=== PATIENT | female | born 1940 | race Caucasian/White ===

== ENCOUNTER 2022-02-03 15:24 | Outpatient (REF) | payer BC, OTHER, SELFPAY ==
[2022-02-03 17:34] LABS: Appearance Urine Turbid (Clear); Bilirubin Urine Negative (Negative); Blood Urine 3+ (Negative); Color Urine Red (Yellow); Glucose Urine Negative (Negative); Ketones Urine Negative (Negative); Leukocyte Esterase Urine 3+ (Negative); Nitrite Urine Positive (Negative); Protein Urine 2+ (Negative); Urobilinogen Urine 0.2 (0.2-1.0); pH Urine 7.5 (5.0-8.5)
[2022-02-03 18:01] LABS: RBC Urine 50-100 (0-2); Squamous Epithelial Cell Urine Few (None-Few); WBC Urine 25-50 (0-5)
[2022-02-03 18:02] LABS: Bacteria Urine Moderate
== END 2022-02-03 15:25 | disposition home or self-care (01) ==
LOC: NPINS 15:24
PROVIDERS: PCP Family Medicine; Visit Provider Family Medicine
DX: N31.9 Neuromuscular dysfunction of bladder, unspecified (principal); N21.0 Calculus in bladder; N30.90 Cystitis, unspecified without hematuria; Z93.6 Other artificial openings of urinary tract status
CPT/HCPCS: 81003; 81015; 87086; 87186

== ENCOUNTER 2022-03-31 09:46 | Outpatient (REF) | payer BC, OTHER, SELFPAY ==
[2022-03-31 10:19] LABS: Appearance Urine Cloudy (Clear); Bilirubin Urine Negative (Negative); Blood Urine 3+ (Negative); Color Urine Amber (Yellow); Glucose Urine Negative (Negative); Ketones Urine Negative (Negative); Leukocyte Esterase Urine 2+ (Negative); Nitrite Urine Positive (Negative); Protein Urine 2+ (Negative); Urobilinogen Urine 0.2 (0.2-1.0); pH Urine 7.5 (5.0-8.5)
[2022-03-31 10:43] LABS: Amorphous Sediment Urine Many; Bacteria Urine Many; RBC Urine >100 (0-2); Squamous Epithelial Cell Urine Moderate (None-Few); WBC Urine 25-50 (0-5)
== END 2022-03-31 09:47 | disposition home or self-care (01) ==
LOC: NPINS 09:46
PROVIDERS: PCP Family Medicine; Visit Provider Nurse Practitioner Gerontology
DX: N31.9 Neuromuscular dysfunction of bladder, unspecified (principal)
CPT/HCPCS: 81003; 81015; 87086; 87186

== ENCOUNTER 2022-04-22 12:08 | Outpatient (REF) | payer BC, OTHER, SELFPAY ==
[2022-04-22 13:02] LABS: Creatinine* 0.3 mg/dL (0.5-1.5); Estimated Glomerular Filt Rate 106 ml/min
== END 2022-04-22 12:09 | disposition home or self-care (01) ==
LOC: NPINS 12:08
PROVIDERS: PCP Family Medicine; Visit Provider Family Medicine
DX: I10 Essential (primary) hypertension (principal); N31.9 Neuromuscular dysfunction of bladder, unspecified; N21.0 Calculus in bladder
CPT/HCPCS: 82565

== ENCOUNTER 2022-05-13 10:43 | Outpatient (CLI) | payer BC, OTHER, SELFPAY ==
--- NOTE | 2022-05-13 11:00 | CRLHL7_ITS ---
For Patients: As a result of the Century Cures Act, medical imaging exams and procedure reports are released immediately into your electronic medical record. You may view this report before your referring provider. If you have questions, please contact your health care provider. Indication: NEUROGENIC BLADDER Technique: Noncontrast CT abdomen and pelvis Please note that all CT scans at this facility use dose modulation, iterative reconstruction, and/or weight-based dosing when appropriate to reduce radiation dose to as low as reasonably achievable. Comparison: 10/09/2021 Findings: Dependent areas of atelectasis are present within both lung bases. There is a small amount of pneumobilia likely from sphincterotomy. The gallbladder is absent. Incidental calcification associated with the pancreatic tail, as before. Stable simple cyst within the left hepatic lobe. Additional cyst within the right hepatic lobe. Mild cardiomegaly. Adrenal glands are normal. No hydronephrosis or renal stone. No splenomegaly. Dense calcifications in the aorta without aneurysm. No retroperitoneal adenopathy. Suprapubic bladder catheter noted. Layering stones in the bladder lumen are similar to the prior study, measuring in total 8 millimeters. Large volume of rectal stool is present. There is no mechanical bowel obstruction. No free air or free fluid. No abscess. No pelvic or inguinal adenopathy. No mesenteric adenopathy. Rightward curvature of the lumbar spine. No fracture. 3.2 cm left adnexal cyst. Impression: Suprapubic catheter within the bladder. No hydronephrosis or hydroureter. Similar bladder stones. Fecal impaction with stool in the rectum. 3.2 cm left adnexal cyst again noted. Please note that all CT scans at this facility use dose modulation, iterative reconstruction, and/or weight-based dosing when appropriate to reduce radiation dose to as low as reasonably achievable. Dictated by Kyle Munoz MD @ 05/13/2022 12:20:59 PM (Electronically Signed)
== END 2022-05-13 10:44 | disposition home or self-care (01) ==
PROVIDERS: PCP Family Medicine; Visit Provider Nurse Practitioner Family
DX: N21.0 Calculus in bladder (principal); K59.00 Constipation, unspecified; N31.9 Neuromuscular dysfunction of bladder, unspecified; N39.0 Urinary tract infection, site not specified
CPT/HCPCS: 74176

== ENCOUNTER 2022-05-26 15:15 | Outpatient (REF) | payer BC, OTHER, SELFPAY ==
[2022-05-26 16:12] LABS: Appearance Urine Cloudy (Clear); Bilirubin Urine Negative (Negative); Blood Urine 3+ (Negative); Color Urine Yellow (Yellow); Glucose Urine Negative (Negative); Ketones Urine Negative (Negative); Leukocyte Esterase Urine 1+ (Negative); Nitrite Urine Negative (Negative); Protein Urine 1+ (Negative); Specific Gravity Urine 1.015 (1.000-1.030); Urobilinogen Urine 0.2 (0.2-1.0); pH Urine 8.5 (5.0-8.5)
[2022-05-26 16:14] LABS: RBC Urine 50-100 (0-2); Squamous Epithelial Cell Urine Few (None-Few)
[2022-05-26 16:15] LABS: Amorphous Sediment Urine Many; Bacteria Urine Many
== END 2022-05-26 15:16 | disposition home or self-care (01) ==
LOC: LAB 15:15
PROVIDERS: PCP Family Medicine; Visit Provider Nurse Practitioner Gerontology
DX: N31.9 Neuromuscular dysfunction of bladder, unspecified (principal); N21.0 Calculus in bladder; Z93.6 Other artificial openings of urinary tract status; N30.90 Cystitis, unspecified without hematuria
CPT/HCPCS: 81001; 87086; 87186

== ENCOUNTER 2022-06-30 16:39 | Outpatient (REF) | payer BC, OTHER, SELFPAY ==
[2022-06-30 17:32] LABS: Appearance Urine Turbid (Clear); Bilirubin Urine Negative (Negative); Blood Urine 3+ (Negative); Color Urine Light yellow (Yellow); Glucose Urine Negative (Negative); Ketones Urine Negative (Negative); Leukocyte Esterase Urine 3+ (Negative); Nitrite Urine Positive (Negative); Protein Urine Negative (Negative); Urobilinogen Urine 0.2 (0.2-1.0)
[2022-06-30 17:49] LABS: Amorphous Sediment Urine Few; Bacteria Urine Few; RBC Urine >100 (0-2); Red Blood Cell Casts Urine Few; Squamous Epithelial Cell Urine Few (None-Few)
== END 2022-06-30 16:40 | disposition home or self-care (01) ==
LOC: NPINS 16:39
PROVIDERS: PCP Family Medicine
DX: N32.89 Other specified disorders of bladder (principal); N21.0 Calculus in bladder; N30.90 Cystitis, unspecified without hematuria; Z93.6 Other artificial openings of urinary tract status
CPT/HCPCS: 81003; 81015; 87086; 87186

== ENCOUNTER 2023-04-18 11:54 | Outpatient (REF) | payer BC, OTHER, SELFPAY ==
[2023-04-18 12:51] LABS: Creatinine* 0.4 mg/dL (0.5-1.5); Estimated Glomerular Filt Rate 98 ml/min
== END 2023-04-18 11:55 | disposition home or self-care (01) ==
LOC: NPINS 11:54
PROVIDERS: PCP Family Medicine; Visit Provider Family Medicine
DX: N28.9 Disorder of kidney and ureter, unspecified (principal)
CPT/HCPCS: 82565

== ENCOUNTER 2023-04-26 10:47 | Outpatient (REF) | payer BC, OTHER, SELFPAY ==
[2023-04-26 11:55] LABS: Chloride* 97 mmol/L (96-114)
[2023-04-26 11:56] LABS: Potassium* 4.4 mmol/L (3.6-5.1); Sodium* 135 mmol/L (135-149)
[2023-04-26 11:58] LABS: Creatinine* 0.3 mg/dL (0.5-1.5); Estimated Glomerular Filt Rate 105 ml/min
[2023-04-26 11:59] LABS: Anion Gap 10 mEq/L (7-15); Blood Urea Nitrogen* 22 mg/dL (7-30); Calcium* 9.9 mg/dL (8.4-10.6); Carbon Dioxide* 28 mmol/L (20-32); Glucose* 132 mg/dL (60-115)
== END 2023-04-26 10:48 | disposition home or self-care (01) ==
LOC: NPINS 10:47
PROVIDERS: PCP Family Medicine; Visit Provider Family Medicine
DX: I10 Essential (primary) hypertension (principal)
CPT/HCPCS: 80048

== ENCOUNTER 2023-05-02 15:18 | Outpatient (REF) | payer BC, OTHER, SELFPAY ==
[2023-05-02 16:54] LABS: Appearance Urine Slightly Cloudy (Clear); Bilirubin Urine Negative (Negative); Blood Urine 3+ (Negative); Color Urine Light yellow (Yellow); Glucose Urine Negative (Negative); Ketones Urine Negative (Negative); Leukocyte Esterase Urine 2+ (Negative); Nitrite Urine Negative (Negative); Protein Urine Negative (Negative); Urobilinogen Urine 0.2 (0.2-1.0)
[2023-05-02 17:10] LABS: Squamous Epithelial Cell Urine Few (None-Few)
== END 2023-05-02 15:19 | disposition home or self-care (01) ==
LOC: NPINS 15:18
PROVIDERS: Internal Medicine Cardiovascular Disease; PCP Family Medicine; Visit Provider Family Medicine
DX: Z46.6 Encounter for fitting and adjustment of urinary device (principal)
CPT/HCPCS: 81003; 81015; 87086; 87186

== ENCOUNTER 2023-07-12 12:53 | Outpatient (REF) | payer BC, OTHER, SELFPAY ==
[2023-07-12 14:09] LABS: Chloride* 99 mmol/L (96-114); Potassium* 4.2 mmol/L (3.6-5.1); Sodium* 137 mmol/L (135-149)
[2023-07-12 14:12] LABS: Anion Gap 11 mEq/L (7-15); Blood Urea Nitrogen* 13 mg/dL (7-30); Carbon Dioxide* 27 mmol/L (20-32); Creatinine* 0.3 mg/dL (0.5-1.5); Estimated Glomerular Filt Rate 105 ml/min
[2023-07-12 14:13] LABS: Calcium* 9.5 mg/dL (8.4-10.6); Glucose* 136 mg/dL (60-115)
[2023-07-12 14:20] LABS: NT Pro B Type NatriureticPept* 81 pg/mL
== END 2023-07-12 12:54 | disposition home or self-care (01) ==
LOC: NPINS 12:53
PROVIDERS: PCP Family Medicine; Visit Provider Family Medicine
DX: R60.0 Localized edema (principal)
CPT/HCPCS: 80048; 83880

== ENCOUNTER 2023-08-16 08:11 | Outpatient (CLI) | payer BC, OTHER, SELFPAY ==
--- NOTE | 2023-08-16 08:45 | CRLHL7_ITS ---
For Patients: As a result of the Century Cures Act, medical imaging exams and procedure reports are released immediately into your electronic medical record. You may view this report before your referring provider. If you have questions, please contact your health care provider. INDICATION: Neurogenic bladder, suprapubic catheter TECHNIQUE: Ultrasound renal and bladder complete. Chew-scale and color Doppler sonographic images of the kidneys and urinary bladder were acquired. COMPARISON: 05/13/[address] FINDINGS: Right kidney:Normal cortical echogenicity. No solid renal mass. No hydronephrosis. 9.7 cm pole to pole. Left kidney:Normal cortical echogenicity. No solid renal mass. No hydronephrosis.10.0 cm pole to pole. Bladder: Not visible and likely collapsed around the suprapubic catheter. IMPRESSION: 1. Unremarkable kidneys. 2. Suprapubic catheter. Bladder nondistended and not visualized. Dictated by Kike Max MD @ 08/16/2023 11:34:32 AM (Electronically Signed)
--- NOTE | 2023-08-16 09:45 | CRLHL7_ITS ---
For Patients: As a result of the Century Cures Act, medical imaging exams and procedure reports are released immediately into your electronic medical record. You may view this report before your referring provider. If you have questions, please contact your health care provider. INDICATION: Neurogenic bladder. TECHNIQUE: Supine abdomen film. FINDINGS: Costochondral calcifications over the upper abdomen. No evidence for radiopaque renal calculi. Multiple pelvic phleboliths. Suprapubic catheter. Large amount of stool. Nonobstructive bowel gas pattern. Dictated by Kike Max MD @ 08/16/2023 11:45:41 AM (Electronically Signed)
== END 2023-08-16 08:12 | disposition home or self-care (01) ==
PROVIDERS: PCP Family Medicine; Visit Provider Nurse Practitioner Family
DX: N31.9 Neuromuscular dysfunction of bladder, unspecified (principal)
CPT/HCPCS: 74018; 76770

== ENCOUNTER 2023-09-17 18:44 | Outpatient (CLI) | payer BC, OTHER, SELFPAY | END 2023-09-17 18:45 | disposition home or self-care (01) | LOC: AMB 09-19 13:04 | PROVIDERS: PCP Family Medicine; Visit Provider Emergency Medicine Emergency Medical Services | DX: K08.89 Other specified disorders of teeth and supporting structures (principal) | CPT/HCPCS: A0425; A0429 ==

== ENCOUNTER 2023-09-17 19:01 | Emergency (ER) | payer BC, OTHER, SELFPAY ==
[2023-09-17 19:09] VITALS: BP 181/108; PULSE 87; RESP 18; TEMP 36.3; O2SAT 93; BMI 29.3
--- NOTE | 2023-09-17 19:34 | ED.DENTAL ---
HPI - Dental/Oral General Chief complaint: Dental/Oral/Mouth Injury/Pain Stated complaint: Tooth pain Time Seen by Provider: 09/17/23 19:15 History of Present Illness HPI Narrative: This 83-year-old female comes in with severe dental pain that began yesterday. She resides in a facility where she needs to have a Beatrice lift for moving around. She has MS and is not ambulatory. Attempts have been made to get into a dentist but unsuccessful at this point so she comes here. She states that she was able to sleep okay last night but was concerned because there was some redness and swelling developing over the right cheek. Her dental pain is located in the right upper row of teeth. She does not report any fevers. Related Data Allergies Allergy/AdvReac Type Severity Reaction Status Date / Time Sulfa (Sulfonamide Allergy Unknown Verified 09/17/23 19:09 Antibiotics) Review of Systems Status of ROS: Reports: 10 or more systems reviewed and unremarkable except as noted in History and below Narrative: Constitutional: No fevers, no weight gain or loss. Eyes: No discharge. No vision changes. HENT: No congestion, no sore throat, no ear pain. Right upper row of dental pain. Cardiovascular: No chest pain, no palpitations. Respiratory: No shortness of breath, no wheezes, no cough. Gastrointestinal: No abdominal pain, no vomiting, no diarrhea. Genitourinary: No dysuria, no hematuria. Musculoskeletal: Late affects of MS. Skin: No rashes, no pruritis. Pysch: no suicidality, no anxiety, no insomnia. All other systems reviewed and are negative. PFSH PFSH Social History Smoking Status: Never smoker Non-prescribed substance use: denies use Exam Narrative: Exam Narrative: Constitutional: Well-developed, well-nourished, no acute distress. HEENT: The right cheek has some erythema and mild swelling. Poor dentition. There is a fractured tooth in the right upper row where she is describing pain. No sign of abscess. Neck: Normal range of motion. Nontender. Supple. Heart: Intact distal pulses. Lungs: No chest discomfort. No wheezes, rhonchi, or rales. Abdomen: Nontender. Back: Normal range of motion. Extremities: Normal range of motion. No injury. Skin: Intact. No rash. Warm. No erythema or pallor. Neurologic: No altered sensation. No weakness. Alert and oriented. Psychiatric: No suicidality. No anxiety or depression. No insomnia. Nursing notes and vitals signs are reviewed. Const: Vital Signs, click to edit/add: Vital Signs - 24 hr 09/17/23 19:09 Temperature 97.3 F L Pulse Rate [Pulse Oximeter] 87 Respiratory Rate 18 Blood Pressure [Le ft Upper Arm] 181/108 H Pulse Oximetry 93 Oxygen Delivery Me thod Room Air Course Vital Signs Vital signs: Initial Vital Signs Temperature 97.3 F L 09/17/23 19:09 Temperature Source Temporal Artery Scan 09/17/23 19:09 Pulse Rate 87 09/17/23 19:09 Pulse Rhythm Regular 09/17/23 19:09 Respiratory Rate 18 09/17/23 19:09 Blood Pressure 181/108 H 09/17/23 19:09 Blood Pressure Mean 132 H 09/17/23 19:09 Blood Pressure Position Sitting 09/17/23 19:09 Pulse Oximetry 93 09/17/23 19:09 Oxygen Delivery Method Room Air 09/17/23 19:09 Vital Signs Temperature 97.3 F L 09/17/23 19:09 Pulse Rate 87 09/17/23 19:09 Respiratory Rate 18 09/17/23 19:09 Blood Pressure 181/108 H 09/17/23 19:09 Pulse Oximetry 93 09/17/23 19:09 Oxygen Delivery Method Room Air 09/17/23 19:09 Temperature 97.3 F L 09/17/23 19:09 Pulse Rate 87 09/17/23 19:09 Respiratory Rate 18 09/17/23 19:09 Blood Pressure 181/108 H 09/17/23 19:09 Pulse Oximetry 93 09/17/23 19:09 Oxygen Delivery Method Room Air 09/17/23 19:09 MDM - Dental/Oral MDM Narrative Medical decision making narrative: This patient comes in with dental pain and is concerned about possible infection as she is developing some mild swelling with erythema in her right cheek. She has a fractured tooth in her right upper row that is likely causing these symptoms. The patient is trying to get an appointment with a dentist. I did offer a dental block which the patient declined. She did received prescription for amoxicillin and Toradol. Discharge Plan Discharge Clinical Impression: Fracture of tooth Patient Disposition: Home, Self-Care Condition: Unchanged Additional Instructions: Take medication as prescribed. Follow-up with dentist as soon as possible. Follow Up/Referrals: Yadi Alan MD [Primary Care Provider] - Stand Alone Forms: [email or web address] - [employer] Info Instructions
[2023-09-17] MEDS: KETOROLAC 10 MG TABLET PO (19:47)
--- NOTE | 2023-09-17 20:10 | ED.NURSE ---
Report called to [facility] nursing staff at [phone].
== END 2023-09-17 20:12 | disposition home or self-care (01) ==
PROVIDERS: Emergency Provider Emergency Medicine Emergency Medical Services; PCP Family Medicine
DX: S02.5XXA Fracture of tooth (traumatic), initial encounter for closed fracture (principal)
CPT/HCPCS: 99282; 99283; 99284; A9270

== ENCOUNTER 2023-09-17 20:07 | Outpatient (CLI) | payer BC, OTHER, SELFPAY | END 2023-09-17 20:08 | disposition home or self-care (01) | LOC: AMB 09-19 12:56 | PROVIDERS: PCP Family Medicine; Visit Provider Family Medicine | DX: K08.89 Other specified disorders of teeth and supporting structures (principal) | CPT/HCPCS: A0425; A0428 ==

== ENCOUNTER 2023-11-15 14:17 | Outpatient (REF) | payer BC, OTHER, SELFPAY ==
[2023-11-15 15:22] LABS: Chloride* 100 mmol/L (96-114); Potassium* 4.4 mmol/L (3.6-5.1); Sodium* 136 mmol/L (135-149)
[2023-11-15 15:25] LABS: Anion Gap 9 mEq/L (7-15); Blood Urea Nitrogen* 15 mg/dL (7-30); Carbon Dioxide* 27 mmol/L (20-32); Creatinine* 0.4 mg/dL (0.5-1.5); Estimated Glomerular Filt Rate 98 ml/min; Glucose* 105 mg/dL (60-115)
[2023-11-15 15:26] LABS: Calcium* 9.5 mg/dL (8.4-10.6)
== END 2023-11-15 14:18 | disposition home or self-care (01) ==
LOC: NPINS 14:17
PROVIDERS: PCP Family Medicine; Visit Provider Nurse Practitioner Gerontology
DX: R60.0 Localized edema (principal)
CPT/HCPCS: 80048

== ENCOUNTER 2024-08-21 16:53 | Outpatient (REF) | payer BC, OTHER, SELFPAY ==
[2024-08-21 17:15] LABS: Appearance Urine Cloudy (Clear); Bilirubin Urine Negative (Negative); Blood Urine 3+ (Negative); Color Urine Yellow (Yellow); Glucose Urine Negative (Negative); Ketones Urine Negative (Negative); Leukocyte Esterase Urine 3+ (Negative); Nitrite Urine Positive (Negative); Protein Urine Negative (Negative); Urobilinogen Urine 0.2 (0.2-1.0)
[2024-08-21 18:08] LABS: RBC Urine 25-50 (0-2); Squamous Epithelial Cell Urine Few (None-Few); WBC Clumps Urine Many; WBC Urine 50-100 (0-5)
[2024-08-21 23:49] LABS: Bacteria Urine Few
== END 2024-08-21 16:54 | disposition home or self-care (01) ==
LOC: NPINS 16:53
PROVIDERS: PCP Family Medicine; Visit Provider Nurse Practitioner Gerontology
DX: N32.89 Other specified disorders of bladder (principal); Z96.0 Presence of urogenital implants
CPT/HCPCS: 81001; 87086; 87186

== ENCOUNTER 2024-10-08 12:17 | Outpatient (CLI) | payer BC, OTHER, SELFPAY | END 2024-10-08 12:18 | disposition home or self-care (01) | LOC: AMB 10-10 12:32 | PROVIDERS: PCP Family Medicine; Visit Provider Family Medicine | DX: R07.89 Other chest pain (principal) | CPT/HCPCS: A0425; A0429 ==

== ENCOUNTER 2024-10-08 12:31 | Emergency (ER) | payer BC, OTHER, SELFPAY ==
[2024-10-08] VITALS (13 sets, daily range): BP systolic 167–178; BP diastolic 89–100; PULSE 79–86; RESP 16; TEMP 36.6; O2SAT 89–94
--- NOTE | 2024-10-08 12:40 | ED.GENADULT ---
HPI - General Adult General Time Seen by Provider: 12:40 Date Seen: 10/08/24 Chief complaint: Unspecified Complaint, Adult Stated complaint: Difficulty Breathing Time Seen by Provider: 10/08/24 12:32 Source: patient, EMS and RN notes reviewed Mode of arrival: EMS Limitations: no limitations History of Present Illness HPI narrative: This 84-year-old female is brought in by EMS from [facility] where she resides with complaint of cough. Patient states she has been coughing, states the cough is productive. She denies any shortness of breath, no chest pain. EMS was reportedly paged for difficulty breathing which patient subsequently denies. The longterm did give report with shortness of breath, chest pain. Patient denies any chest pain. On questioning of prior heart or lung history, she denies. We then talked about her pacemaker and she states she has 2 in there, had 1 replaced and the other was left in place per report. She reportedly has been coughing for 2 weeks, is productive. They did do COVID in flu which was negative. She denies fevers, night sweats. She denies any headache, no sore throat. Patient is noted to have memory issues. 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 She is full code. Related Data Home Medications ?Medication ?Instructions ?Recorded ?Confirmed furosemide 20 mg tablet 30 mg PO BID 10/08/24 10/08/24 furosemide 40 mg tablet mg 10/08/24 metoprolol succinate 25 mg mg PO DAILY 10/08/24 tablet,extended release 24 hr omeprazole 20 mg capsule,delayed 20 mg PO DAILY 10/08/24 10/08/24 release polyethylene glycol 3350 17 g DAILY 10/08/24 gram/dose oral powder potassium chloride 10 mEq meq PO DAILY 10/08/24 tablet,extended release sertraline 25 mg tablet mg DAILY 10/08/24 sodium chloride 0.65 % nasal spray intranasal 10/08/24 aerosol (Deep Sea Nasal) solifenacin 10 mg tablet mg PO DAILY 10/08/24 Previous Rx's ?Medication ?Instructions ?Recorded amoxicillin 500 mg-potassium 1 tab PO BID #14 tabs 10/08/24 clavulanate 125 mg tablet (Augmentin) prednisone 20 mg tablet 20 mg PO BID #10 tabs 10/08/24 Allergies Allergy/AdvReac Type Severity Reaction Status Date / Time Sulfa (Sulfonamide Allergy Unknown Verified 09/17/23 19:09 Antibiotics) Review of Systems Status of ROS: Reports: 6 or more systems reviewed and unremarkable except as noted in History and below Narrative: Note do question patient's reliability in history taking. [facility] Medical History (Updated 10/08/24 @ 15:22 by Katarina Aguilar MD) Multiple sclerosis ?G35 - Multiple sclerosis (ICD-10) Surgical History (Updated 10/08/24 @ 13:16 by Katarina Aguilar MD) Status post placement of cardiac pacemaker ?Z95.0 - Presence of cardiac pacemaker (ICD-10) Social History Smoking Status: Never smoker Do you use any of these nicotine containing products: None How often do you have a drink containing alcohol: never AUDIT-C Alcohol total score: 0 Non-prescribed substance use: denies use Exam Const: Vital Signs, click to edit/add: Vital Signs - 24 hr 10/08/24 12:32 10/08/24 13:32 10/08/24 13:35 Temperature 97.9 F Pulse Rate 80 Pulse Rate [Pulse Oximeter] 82 Respiratory Rate 16 Blood Pressure Blood Pressure [Le ft Upper Arm] 178/89 H Pulse Oximetry 90 91 90 Oxygen Delivery Me thod Room Air 10/08/24 13:45 10/08/24 14:21 10/08/24 14:26 Temperature Pulse Rate 79 84 86 Pulse Rate [Pulse Oximeter] Respiratory Rate Blood Pressure 167/100 H Blood Pressure [Le ft Upper Arm] Pulse Oximetry 93 90 90 Oxygen Delivery Me thod 10/08/24 14:34 10/08/24 14:45 Temperature Pulse Rate 84 81 Pulse Rate [Pulse Oximeter] Respiratory Rate Blood Pressure Blood Pressure [Le ft Upper Arm] Pulse Oximetry 89 93 Oxygen Delivery Me thod This 84-year-old female is alert, interactive, no apparent distress. Speech is normal, no hoarseness, no stridor. Conjugate gaze, sclera clear, symmetrical facial function. Patient is smiling and very pleasant. Neck without any jugular venous distension, no masses, no adenopathy. With nursing assistance, patient is lifted up off bed to listen to her lungs. Has rhonchi at both bases but not truly crackles. Upper lungs are clear. There is no tachypnea, no accessory muscle use. Pacemaker in left chest wall. CV regular, no murmur, normal S1-S2, no S3-S4. Abdomen is soft, nontender, nondistended, do not feel any rebound or guarding, no masses, no organomegaly. She has got lower leg compression stockings on, no underlying edema. Urine in catheter tubing clear to light yellow, not cloudy. Documenting provider has reviewed patient's vital signs: yes Course Course ED Course: This patient is denying shortness of breath or chest pain but is reported in her history. She certainly is consistent with the reported cough. Will start with a portable chest x-ray, recheck triple viral swab. Get full complement of labs, consider cardiac etiologies such as ischemic disease, congestive heart failure. Respiratory illness with viral and or pneumonia or possible. Will do full complement of labs, patient will get an EKG, will be monitored on pulse oximetry. Reevaluation(s) Time of Reevaluation #1: 14:04 Reevaluation #1: Chest x-ray is not showing anything definitive, white count is normal. Patient is certainly at risk for things such as aspiration, respiratory infections. Do think we need chest CT imaging for better visualization of lung parenchyma. Time of Reevaluation #2: 15:15 Reevaluation #2: Have spoken with patient, had conversed with her daughter Dayami as well as our hospitalist Dr. Bryant prior. Dr. Bryant did contact the facility, patient can get a speech consult there, need to write an order for thick it and pureed foods in the meantime. Dianna is given option of staying in the hospital for swallow study tomorrow versus returning home and having modifications of her diet in the meantime. We discussed we will not know ultimately if this is the appropriate approach until she is had the swallow study. Have subsequently spoken with her other daughter Neha whom is MP in who eye. She is comfortable with the plan. Patient does want to return to her residence, this is supported by her family. Will write for the speech consult for the swallow study, results to her longterm doctor. Will also write for thick it and pureed foods until results of speech consult are known. Have also reviewed that we will cover with prednisone and Augmentin. Vital Signs Vital signs: Initial Vital Signs Temperature 97.9 F 10/08/24 12:32 Temperature Source Temporal Artery Scan 10/08/24 12:32 Pulse Rate 82 10/08/24 12:32 Respiratory Rate 16 10/08/24 12:32 Blood Pressure 178/89 H 10/08/24 12:32 Blood Pressure Mean 118 H 10/08/24 12:32 Blood Pressure Position Supine 10/08/24 12:32 Pulse Oximetry 90 10/08/24 12:32 Oxygen Delivery Method Room Air 10/08/24 12:32 Vital Signs Temperature 97.9 F 10/08/24 12:32 Pulse Rate 82 10/08/24 12:32 Respiratory Rate 16 10/08/24 12:32 Blood Pressure 178/89 H 10/08/24 12:32 Pulse Oximetry 90 10/08/24 12:32 Oxygen Delivery Method Room Air 10/08/24 12:32 Temperature 97.9 F 10/08/24 12:32 Pulse Rate 81 10/08/24 14:45 Respiratory Rate 16 10/08/24 12:32 Blood Pressure 167/100 H 10/08/24 14:26 Pulse Oximetry 93 10/08/24 14:45 Oxygen Delivery Method Room Air 10/08/24 12:32 Medical Decision Making Lab Data Lab results reviewed: Yes I reviewed the patient's lab results Labs: Lab Results 10/08/24 10/08/24 Range/Units 13:10 13:25 WBC 10.24 (4.50-11.00) K/uL RBC 5.22 H (4.00-5.20) m/uL Hgb 14.7 (12.0-16.0) gm/dL Hct 44.9 (33.0-51.0) % MCV 86 (80-100) fL MCH 28 (26-34) pg MCHC 33 (32-36) gm/dL RDW Coeff of Rocio 13.6 (11.5-15.5) % Plt Count 395 (140-440) K/uL Neut % (Auto) 52.5 (42.0-72.0) % Lymph % (Auto) 36.8 (20-44) % Sioux % (Auto) 8.6 (0.0-11.0) % Eos % (Auto) 1.6 (0.0-7.0) % Baso % (Auto) 0.3 (0.0-3.0) % Neut # (Auto) 5.38 (1.7-7.0) K/uL Lymph # (Auto) 3.77 H (0.90-2.90) K/uL Sioux # (Auto) 0.90 (0.00-0.90) K/UL Eos # (Auto) 0.16 (0.00-0.50) K/uL Baso # (Auto) 0.03 (0.00-0.30) K/uL Abs Immat Gran (auto) 0.02 (0.00-0.30) K/uL Imm/Tot Granulo (auto) 0.2 % VBG pH 7.395 (7.32-7.43) VBG pCO2 50 (40-50) mmHG VBG pO2 47.0 (25-47) mmHG VBG HCO3 30 H (21-28) mmol/L Sodium 135 (135-149) mmol/L Potassium 3.5 L (3.6-5.1) mmol/L Chloride 98 (96-114) mmol/L Carbon Dioxide 28 (20-32) mmol/L Anion Gap 9 (7-15) mEq/L BUN 13 (7-30) mg/dL Creatinine 0.4 L (0.5-1.5) mg/dL Estimated GFR 97 ml/min Glucose 92 (60-115) mg/dL Lactate 1.4 (0.5-1.9) mmol/L Calcium 9.5 (8.4-10.6) mg/dL Magnesium 2.2 (1.5-2.6) mg/dL Total Bilirubin 0.6 (0.1-1.5) mg/dL AST 19 (12-35) U/L ALT 12 (4-35) U/L Alkaline Phosphatase 128 (40-150) U/L Troponin I < 0.01 L (0.01-0.04) ng/mL C-Reactive Protein 1.1 H (0.5-1.0) mg/dL NT-Pro-B Natriuret Pep 129 pg/mL Total Protein 7.7 (6.0-8.3) g/dL Albumin 4.3 (3.3-5.0) g/dL SARS-CoV-2 (PCR) Negative SARS-CoV-2 (Negative) Influenza Type A (PCR) Negative PCR FLU A (Negative) Influenza Type B (PCR) Negative PCR FLU B (Negative) RSV (PCR) Negative PCR RSV (Negative) Imaging Data Chest x-ray: Attestation: I have reviewed the pertinent imaging results. Radiologist's impression: Patient: DIANNA MARTE Facility:?[facility] Patient ID:?[id number] Site Patient ID:?[id number]. Site :?[id number] Study:?XRay-Chest 1 VIEW PORTABLE-10/08/2024 1:34:14 PM Ordering Physician:Vilma Bray Final Report: INDICATION: Cough. TECHNIQUE: Chest 1 views. COMPARISON: None. FINDINGS/IMPRESSION: Mild left basilar atelectasis. No consolidative opacity, significant effusion or pneumothorax. Mild cardiomegaly without pulmonary edema. Left-sided cardiac defibrillator is in place. Dictated by Susan Tripp MD @ 10/08/2024 1:38:33 PM (Electronic Signature) CT scan - chest: Attestation: I have reviewed the pertinent imaging results. Radiologist's impression: Patient: DIANNA MARTE Facility:?[facility] Patient ID:?[id number] Site Patient ID:?[id number]. Site :?[id number] Study:?CT-Chest w/o-10/08/2024 2:13:56 PM Ordering Physician:Vilma Bray Final Report: INDICATION: Cough and shortness of breath. COMPARISON: Same-day chest radiographs CT report of the abdomen and pelvis from 05/13/2022 TECHNIQUE: CT chest without contrast. Multiplanar axial, coronal, and sagittal reformats are included. MIP images to improve detection of pulmonary nodules are included. Intravenous contrast: None FINDINGS: Airway: There is a small amount of debris in the mid trachea. Debris in the distal left mainstem bronchus. There are scattered endobronchial impaction in both lower lobes with bronchial wall thickening. Lungs: There is some minimal peribronchiolar opacities in both lung bases without a large dense consolidation. No pulmonary edema. No emphysema. Pleura: No pleural effusion. No pneumothorax. Lymph nodes: No thoracic adenopathy. Mediastinum: No pneumomediastinum. There is a 1.5 x 2.5 x 1.3 centimeter thyroid nodule on the right. Heart and great vessels: No pericardial effusion. Left subclavian pacemaker leads in the right atrium and right ventricle. Normal cardiac chamber size. Heavy coronary and moderate scattered other atherosclerotic plaques. No aortic aneurysm. Normal caliber main pulmonary artery. Chest wall: Severe asymmetric fatty atrophy of the right-sided musculature around the shoulder girdle, chest, and paraspinal muscles. There is severe fatty atrophy of the left mid to lower paraspinal muscles included in the field of view. Upper abdomen: There are 2 small well-circumscribed subcapsular low-density lesions in the liver. Probably cysts. This is described on prior CT abdomen. High density ingested tablet in the stomach. Partially visualized abdominal wall hernia with bowel contents in the right mid abdomen. There is some adjacent soft tissue edema but is not fully included within the field of view. Bones: No fractures. No focal bone lesions. IMPRESSION: 1. Airway debris, bronchial wall thickening, and patchy basilar peribronchial or opacities. Constellation of findings suggest aspiration pneumonitis. No large pneumonia. 2. There is a right thyroid nodule that measures up to 2.5 cm. Further characterization with ultrasound at the discretion of the patient and their physicians. Please note that all CT scans at this facility use dose modulation, iterative reconstruction, and/or weight-based dosing when appropriate to reduce radiation dose to as low as reasonably achievable. Dictated by Shara Farley MD @ 10/08/2024 2:34:16 PM (Electronic Signature) ECG Data Attestation: I personally reviewed and interpreted this ECG as follows: (Sinus rhythm with first-degree AV block, 78 beats per minute. Do see pacer spikes, paced rhythm) Discharge Plan Discharge Clinical Impression: Aspiration pneumonia Qualifiers: Aspiration pneumonia type: unspecified Laterality: bilateral Lung location: unspecified part of lung Qualified Code(s): J69.0 - Pneumonitis due to inhalation of food and vomit Patient Disposition: Home, Self-Care Condition: Stable Instructions: Pneumonitis (ED), Aspiration Precautions (ED) Additional Instructions: Will cover with Augmentin and prednisone. Need a speech consult for swallow study. Need to use Thick-it with liquids and puree food until the results of the speech consult are known. Results of the swallow study due to the facility provider covering. Diet Detail: As above Prescriptions: New amoxicillin-pot clavulanate [Augmentin] 500-125 mg tablet 1 tab PO BID Qty: 14 0RF prednisone 20 mg tablet 20 mg PO BID Qty: 10 0RF No Action furosemide 40 mg tablet potassium chloride 10 mEq tablet extended release PO DAILY sertraline 25 mg tablet DAILY omeprazole 20 mg capsule,delayed release(DR/EC) 20 mg PO DAILY furosemide 20 mg tablet 30 mg PO BID metoprolol succinate 25 mg tablet extended release 24 hr PO DAILY polyethylene glycol 3350 17 gram/dose powder DAILY Deep Sea Nasal 0.65 % aerosol,spray INTRANASAL Patient Comments: [NO ORIGINAL SIG] solifenacin 10 mg tablet PO DAILY Follow Up/Referrals: Yadi Alan MD [Primary Care Provider] - Stand Alone Forms: [email or web address] Info Instructions
[2024-10-08 13:29] LABS: HCO3 VBG 30 mmol/L (21-28); Lactate* 1.4 mmol/L (0.5-1.9); PCO2 VBG 50 mmHG (40-50); pH VBG 7.395 (7.32-7.43)
[2024-10-08 13:30] LABS: Basophils Absolute Auto 0.03 K/uL (0.00-0.30); Basophils Percent Auto 0.3 % (0.0-3.0); Eosinophils Absolute Auto 0.16 K/uL (0.00-0.50); Eosinophils Percent Auto 1.6 % (0.0-7.0); Hematocrit 44.9 % (33.0-51.0); Hemoglobin* 14.7 gm/dL (12.0-16.0); Immature Granulocytes Abs Auto 0.02 K/uL (0.00-0.30); Immature Granulocytes Pct Auto 0.2 %; Lymphocytes Absolute Auto 3.77 K/uL (0.90-2.90); Lymphocytes Percent Auto 36.8 % (20-44); Mean Corpuscular HGB Conc 33 gm/dL (32-36); Mean Corpuscular Hemoglobin 28 pg (26-34); Mean Corpuscular Volume 86 fL (80-100); Monocytes Percent Auto 8.6 % (0.0-11.0); Neutrophils Absolute Auto 5.38 K/uL (1.7-7.0); Neutrophils Percent Auto 52.5 % (42.0-72.0); Platelet Count* 395 K/uL (140-440); RDW Coefficient of Variation % 13.6 % (11.5-15.5); Red Blood Count 5.22 m/uL (4.00-5.20); White Blood Count* 10.24 K/uL (4.50-11.00)
--- OUTSIDE RECORDS SUMMARY | 2024-10-08 13:37 | XMS_ITS | Clinical Summary ---
Author Organization [facility] Address [address] [place] [address] Care Team Providers Care Printed Circuit Boards Beveler Name Role Phone Unavailable Primary Care Provider Unavailabl e Source Comments Patient records contain information from all sites at [facility]. For routine questions regarding patient records, call [phone] during business hours, M-F 8:00 AM - 5:00 PM Central Time. Record requests for emergency care only can be directed to [phone] at any time.[facility] Allergies Active Allergy Reactions Criticality Noted Date Comments Sulfa (Sulfonamide Antibiotics) Hives (Reselect Reaction) 03/13/2010 Medications acetaminophen (TYLENOL) 500 mg tablet Take 500 mg by mouth. 9 Active biotin, bulk, 100 % powder by other route See Admin Instructions. 7 Active diphenhydrAMINE -acetaminophen (TYLENOL PM) 25-500 mg per tablet Take 1 tablet by mouth. 0 Active cholecalciferol (VITAMIN D3) 125 mcg (5,000 Unit) capsule Take 1 capsule by mouth daily. 6 Active cinnamon bark 500 mg capsule Take by mouth. 3 Active COD LIVER OIL ORAL Take 1 capsule by mouth daily. 0 Active cranberry 400 mg capsule Take by mouth. 6 Active cyanocobalamin (VITAMIN B12) 1,000 mcg tablet Take 1 tablet by mouth daily. 9 Active diphenhydrAMINE (BENADRYL) 25 mg capsule Take 25 mg by mouth. 9 Active furosemide (LASIX) 20 mg tablet Take 40 mg by mouth. 0 Active melatonin 3 mg tablet Take 5 mg by mouth at bedtime. 0 Active L.acidoph,saliv a-B.bif-S.therm 175 mg capsule Take 1 capsule by mouth daily. 0 Active magnesium hydroxide (MILK OF MAGNESIA) 400 mg/5 mL suspension TAKE 15 mLS BY MOUTH ONCE DAILY NEEDED 9 Active metoprolol succinate (TOPROL-XL) 25 mg 24 hr tablet Take 1 tablet by mouth daily. 8 Active mirabegron (MYRBETRIQ) 50 mg 24 hr tablet Take 50 mg by mouth. 1 Active zinc oxide (Dr. Preston's Diaper) 10 % ointment APPLY TO AFFECTED DULCE AREA FOUR TIMES DAILY FOR SKIN CONDITION 9 Active co-enzyme Q-10 (CO Q-10) 100 mg capsule Take 1 capsule by mouth daily. 0 Active solifenacin (VESICARE) 10 mg tablet Take by mouth. 1 Active NaCl 0.9 % irrigation IRRIGATE CATHETER WITH 200ML WEEKLY PER MD INSTRUCTIONS 9 Active potassium chloride (KLOR-CON M) 10 mEq ER tablet Take 1 tablet by mouth daily. 9 Active polyethylene glycol (MIRALAX) 17 gram/dose oral powder DISSOLVE 17GMS IN WATER AND TAKE BY MOUTH ONCE DAILY ON TUE,TUE AND TUESDAY;DISSOLVE 17 GMS IN WATER AND TAKE BY MOUTH ONCE DAILY NEEDED 9 Active milk thistle seed extract 140 mg capsule 140 mg. 0 Active bisacodyL (DULCOLAX) 10 mg suppository UNWRAP AND INSERT 1 SUPPOSITORY RECTALLY EVERY 12 HOURS NEEDED 9 Active sertraline (ZOLOFT) 25 mg tablet TAKE 1 TAB BY MOUTH ONCE DAILY 2 Active chromium picolinate 200 mcg tablet Take 1 capsule by mouth daily. 6 Active DOCOSAHEXAENOIC ACID ORAL Take 500 mg by mouth 2 (two) times a day. Active alum-mag hydroxide-simet h (Victorina-Lanta) 200-200-20 mg/5 mL suspension Take 30 mL by mouth every 6 (six) hours as needed for indigestion. Active NELA ROOT EXTRACT ORAL Take by mouth as needed. Active loperamide (IMODIUM A-D) 2 mg tablet Take 2 mg by mouth 4 (four) times a day as needed for diarrhea. Active TURMERIC ORAL Take 500 mg by mouth daily. 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 Depression Major One Episode Moderate 11/16/2021 Multiple Sclerosis 06/13/2017 Stone Bladder 08/11/2015 Neurogenic Bladder 08/11/2015 Rosacea 05/18/2012 Cataract 02/15/2012 Hypertension 03/26/2011 Other Cystostomy Status 05/11/2010 Immunizations Immunization Administration Dates Next Due HZV (ZOSTAVAX) 05/22/2014 Influenza TIV (IM) 05/24/2013,05/25/2012, 010 Influenza, Injectable, Mdck, Quadrivalent 04/21/2022,05/01/2021,04/30/2020,2018 Influenza, Injectable, Quadrivalent 05/23/2014 Influenza, Seasonal, Injectable 05/24/2013,05/25,05/14/2010 PCV13 01/27/2015 PPSV23 09/15/2004 RZV (SHINGRIX) 04/12/2019,04/11/2019 Td (Adult), adsorbed 11/23/1989 Tdap 02/15/2012 influenza trivalent high dos e (HD)(PF) 05/19/2018,06/10/2017,05/20/2017,2015,05/22/2015 Social History Tobacco Use Types Packs/Day Years Used Date Smoking Tobacco: Never Assessed Dental Answer Date Recorded Dental: Regular Dentist Unknown 04/26/20 Comments Unknown Sex and Gender Information Value Date Recorded Sex Assigned at Not on file Legal Sex Female 3:46 PM BOTTLE HOP Gender Identity Not on file Sexual Orientation Not on file Plan of Treatment Health Maintenance Due Date Last Done Comments Depression Monitoring (PHQ-9) 1940 Hepatitis B Screening 1940 Office Visit for Blood Pressure Check / Re-check 1940 Zoster Vaccines (3 of 3) 06/07/2019 019, 04/11/2019, 05/22/2014 DTaP,Tdap,and Td Vaccines (2 - Td or Tdap) 02/14/2022 02/15/2012, 11/23/1989 Creatinine Level (Kidney Function Test) 11/18/2023 11/17/2022, 11/16/2021, 04/10/2019, Additional history exists Potassium Level 11/18/2023 11/17/2022, 10/30, 04/10/2019, Additional history exists Sodium Level 11/18/2023 11/17/2022, 10/30, 04/10/2019, Additional history exists COVID-19 Vaccine ( season) 2024 09/06/2023, 01/13/2023, 02/17/2022, Additional history exists Influenza Vaccine (#1) 2024 , 04/21/2022, 05/01/2021, Additional history exists Depression Monitoring (PHQ-9 for quality tracking) 08/01/2024 Fall Risk Screen (Annual) 08/01/2024 Pneumococcal vaccine (50+ years) Completed 01/27/2015, 09/15/2004 RSV vaccine - (32-36 weeks) or 60+ years Completed 09/06/2023 IPV Vaccines Aged Out No longer eligi ble based on patient's age to complete this topic Insurance [address] [place] [address] [employer] [facility]
--- OUTSIDE RECORDS SUMMARY | 2024-10-08 13:37 | XMS_ITS | Clinical Summary ---
Author Organization [employer] [facility] [employer] [facility] Address [address] [place] [address] Care Team Providers Care Chrome Polisher Name Role Phone Evin Rowley MD Unavailable DayannaYadi ortiz MD Primary Care Provider Allergies Active Allergy Reactions Criticality Noted Date Comments Sulfa (Sulfonamide Antibiotics) Rash 03/13/2010 Big splotches of red on whole body Medications coenzyme q10 100 mg Cap Take 1 capsule by mouth once daily. 0 0 Active docosahexanoic acid-eicosapent (MAXEPA; FISH OIL) capsule Take 2 capsules by mouth once daily. 0 0 Active Calcium Carbonate 1,000 mg tablet Take one tablet by mouth twice daily. 0 0 Active cholecalciferol (VITAMIN D3) 5,000 unit capsule Take 1 capsule by mouth once daily. 0 6 Active Cranberry 400 mg capsuleIndicatio ns:Unexplained weight loss Take 400 mg by mouth once daily. 0 6 Active potassium chloride (K-DUR, KLOR-CON M10) 10 mEq tabletIndication s:HTN (hypertension) TAKE ONE TABLET BY MOUTH DAILY 90 tablet 1 9 Active cyanocobalamin (VITAMIN B-12) 1,000 mcg tabletIndication s:B12 deficiency Take 1 tablet by mouth once daily. 90 tablet 3 9 Active furosemide (LASIX) 40 mg tabletIndication s:Hypertension, unspecified type Take 40 mg by mouth two times daily. 180 tablet 3 0 Active L.acidoph,saliva -B.bif-S.therm (ACIDOPHILUS PROBIOTIC BLEND) 175 mg cap Take 1 capsule by mouth once daily. 0 0 Active cod liver oil cap Take 1 capsule by mouth once daily. 0 0 Active solifenacin (VESIcare) 10 mg tablet Take 10 mg by mouth once daily. 0 1 Active mirabegron EXTENDED-release (Myrbetriq) 50 mg tabletIndication s:Bladder spasms Take 1 Tablet (50 mg) by mouth once daily. 90 Tablet 3 1 Active sertraline (ZOLOFT) 25 mg tablet Take 25 mg by mouth once daily. 2 Active metoprolol succinate (TOPROL XL) 25 mg Sustained-Releas e tablet Take 12.5 mg by mouth once daily. Active polyethylene glycol (Miralax) 17 g per packet packet Mix 1 Packet in liquid then take by mouth once daily. Active Active Problems Problem Noted Date Diagnosed Date Depression, major, single episode, moderate 10/30 Neurogenic bladder 08/11/2015 Urinary bladder stone 08/11/2015 Rosacea 05/18/2012 Cataract 02/15/2012 HTN (hypertension) 03/26/2011 Suprapubic catheter 05/11/2010 S/P dual chamber pacemaker 03/25/2010 03/26/2010 MS (multiple sclerosis) Hyperlipidemia Spinal stenosis Bradycardia Overview (03/26/2010): With high grade AV block Palpitations Resolved Problems Problem Noted Date Diagnosed Date Resolved Date Hypertension 12/29/2010 Immunizations Immunization Administration Dates Next Due Influenza, High-dose Inactivated 018,06/10/2017,05/21/2016,2014 Influenza, IIV3 (Age >=3 years) 05/24/2013,05/25,05/14/2010 Influenza, IIV4 (=>6mos) MDV 05/23/2014 Influenza, Injectable, Mdck, Quadrivalent, W/preservative 04/21/2022,05/01/2021,04/30/2020,2018 Pneumococcal Poly,23-Valent (Pneumovax) 09/15/2004 Pneumococcal conj 13-Valent (Prevnar 13) 01/27/2015 Td (Age >=7 Years) 11/23/1989 Tdap 02/15/2012 Zoster (Shingrix-RZV, recombinant) 04/12/2019, Zoster (Zostavax-ZVL, live) 05/22/2014 Family History Medical History Relation Name Comments Cancer-prostate Brother 3 Jeb Good Health Daughter 4 Dayami Other Daughter 5 Mahnaz Hypoglycemic Diabetes Daughter 6 Anastacia Cancer Father age 72 , bladder cancer Cancer-breast Mother Diabetes Sister 3 Yadira Good Health Sister 4 Fabi Good Health Son 3 Evgeny Diabetes Son 4 Mark Relation Name Status Comments Brother 1 Brother 2 Alive Brother 3 Jeb Daughter 1 Alive Daughter 2 Alive Daughter 3 Alive Daughter 4 Dayami Daughter 5 Mahnaz Daughter 6 Anastacia Father (Age 72) Mother Sister 1 Alive Sister 2 Alive Sister 3 Yadira Sister 4 Fabi Son 1 Alive Son 2 Alive Son 3 Evgeny Son 4 Mark Social History Tobacco Use Types Packs/Day Years Used Date Smoking Tobacco: Former Cigarettes 1.5 30 1 960 - 08/01/1989 Smokeless Tobacco: Never Tobacco Cessation:Counseling Given: Yes Alcohol Use Standard Drinks/Week Comments No 0 (1 standard drink = 0.6 oz pur e alcohol) PHQ-2 Answer Date Recorded PHQ-2 TOTAL SCORE 0 11/17/2022 Social Connections Answer Date Recorded Do you often feel lonely or isolated from those around you? 0 02/09/2024 Financial Resource Strain Answer Date R ecorded Difficulty of Paying Living Expenses 3 02/09/2024 Difficulty of Paying Living Expenses Not on file 02/09/2024 Food Insecurity Answer Date Recorded Do you worry your food will run out before you are able to buy more? 1 02/09/2024 Transportation Needs Answer Date Record ed Does lack of transportation keep you from medica l appointments? 1 02/09/2024 Does lack of transportation keep you from work, meetings or getting things that you need? 1 02/09/2024 Housing Stability Answer Date Recorded What is your housing situation today? 1 02/09/2024 Interpersonal Safety Answer Date Record ed Are you being hit, kicked, p ushed or yelled at (see row info)? No 02/09/2024 Interpersonal Safety Abuse 12 - 18 Not on file 02/09/2024 Interpersonal Safety Ambulatory Vulnerability No t on file 02/09/2024 Utilities Answer Date Recorded Do you have trouble paying f or utilities (for example, heat, electricity, water, phone)? 1 02/09/2024 Comments No Sex and Gender Information Value Date Recorded Sex Assigned at Not on file Legal Sex Female 6:10 AM CHIP TUNER Gender Identity Not on file Sexual Orientation Not on file Obstetrics History Last Filed Vital Signs Vital Sign Reading Time Taken Comments Blood Pressure 182/82 02/10/2024 2:00 PM CDT Pulse 95 02/10/2024 7:39 AM CDT Temperature 36.4 C (97.6 F) 02/10/2024 2:00 PM CDT Respiratory Rate 16 02/10/2024 2:00 PM CDT Oxygen Saturation 95% 02/10/2024 7:39 AM CDT Inhaled Oxygen Concentration - - Weight 72.3 kg (159 lb 6.3 oz) 02/10/2024 6:00 A M CDT Height 157.5 cm (5' 2) 02/09/2024 9:48 AM CDT Body Mass Index 29.15 02/09/2024 9:48 AM CDT Plan of Treatment Upcoming Encounters Date Type Department Care Team (Late st Contact Info) Description 10/16/2024 Cardiac Device Check [employer] [facility] [phone] Health Maintenance Due Date Last Done Comments RSV vaccine for adults or (1 - 1-dose 75+ series) 2014 Zoster (shingles) series for age 50+ (3 of 3) 06/07/2019 04/12/2019, 04/11/2019, 05/22/2014 Tetanus booster 02/14/2022 02/15/2012, 11/23/1989 Depression screening for age 12+ 11/18/2023 11/17/2022, 11/17/2022, 11/16/2021, Additional history exists Medicare Wellness for age 65+ 11/18/2023, 11/16/2021, 04/10/2019, Additional history exists COVID-19 vaccine series ( season) 2024 09/06/2023, 01/13/2023, 02/17/2022, Additional history exists Influenza Vaccine (#1) 2024 2, 05/01/2021, 04/30/2020, Additional history exists Tdap Completed 02/15/2012 DEXA/DXA scan for age 65+ Completed 2012, 10/22/2011 (Declined) Pneumococcal series for age 50+ Completed 5, 09/15/2004 Medical Devices Implanted Type Area Paleology Teacher Device Identifier Shelf Expiration Date Model / Serial / Lot Dual Chamber Pacemaker Implanted:03/02 (Quantity not on file) Standard Pacemaker Medtronic ADAPTA L [id number] / [id number] / Procedures Procedure Name Priority Date/Time Associated Diagnosis Comments XR DXA BONE DENSITY 1 SITE AXIAL Routine 01/22/2013 2:02 PM CDT Asymptomatic postmenopausal status (age-related) (natural) from Last 3 Months or Most Recently Relevant to Health Maintenance Results * XR DXA BONE DENSITY 1 SITE (01/22/2013 2:02 PM CDT) Anatomical Region Laterality Modality HIPS, HIPL, HIPR Other Narrative 01/25/2013 9:43 AM CDT Please see scanned document for results of this study. Procedure Note Aurelia Morales - 01/25/2013 Please see scanned document for results of this study. Yadi Alan MD DEXA Final R esult from Last 3 Months or Most Recently Relevant to Health Maintenance Additional Health Concerns Infection Onset Date Last Indicated MRSA Comment:Order Contact Precautions. Nares surveillance cultures needed to clear patient if <12 months since positive culture. If >12 months since positive culture, precautions can be discontinued if patient has no MRSA risk factors. #1 +MRSA Urine 05/02/23 exclusions for contact precaution discontinuation (if > 12 months since positive culture): resides in acute/usp care, receiving hemodialysis, has chronic open wounds/skin damage, has long-term percutaneous indwelling medical devices Exclusions for nares collection (if <12 months since positive culture) include all of the previous exclusions plus patients on antibiotics 7 days prior to collection 05/02/2023 05/02/2023 Insurance * Guarantor: [place] Dianna E Account Type Relation to Patient Date of Phone Billing Address Personal/Family Self 1940 [id number] [address] MEDICARE PART A HB ONLY [facility] Member Subscriber Plan / Payer (Ef fective 2023-Present) Name:Emili Dianna E Relation to Subscriber:Self Name:Dianna Mock Marco Payer ID:[id number] (NAIC) Group ID:[id number] Type:Not on file Address: MAILSTOP: [id number] [place] [address] Advance Directives Documents on File Type Date Recorded Patient Bindery Technician Expl anation POLST 04/25/2019 9:31 AM [facility] [place] 03/13/2019 POLST 09/21/2017 1:37 PM SOL FERRER, 09/20/17 POLST 09/13/2011 [facility], 09/13/11 Healthcare Directive 08/17/2010 ADVANCE D DIRECTIVE FORM/[facility], [facility], 08/17/10 * Full Code (Latest Code Status on File) Date Activated Date Inactivated Comments 02/09/2024 1:17 PM 02/10/2024 7:00 PM Question Answer Comments Code Status Discussion: Other * Full Code Date Activated Date Inactivated Comments 07/14/2022 7:22 AM 07/14/2022 2:35 PM Question Answer Comments Code Status Discussion: Unable to Assess Preferences, Provider to review later * Full Code Date Activated Date Inactivated Comments 03/25/2010 1:15 PM 03/26/2010 6:33 PM Care Teams Chrome Polisher Relationship Specialty Start Date End Date Yadi Alan MD [address] [place] [address] PCP - General Family Practice 11/16/21 Evin Rowley MD Surgery - Urology 01/22/13
[2024-10-08 13:39] LABS: Slide Review Reflex No
[2024-10-08 13:47] LABS: Albumin* 4.3 g/dL (3.3-5.0); Chloride* 98 mmol/L (96-114)
[2024-10-08 13:48] LABS: Potassium* 3.5 mmol/L (3.6-5.1); Sodium* 135 mmol/L (135-149)
[2024-10-08 13:50] LABS: Bilirubin Total* 0.6 mg/dL (0.1-1.5); Blood Urea Nitrogen* 13 mg/dL (7-30); Creatinine* 0.4 mg/dL (0.5-1.5); Estimated Glomerular Filt Rate 97 ml/min
[2024-10-08 13:51] LABS: Alanine Aminotransferase* 12 U/L (4-35); Alkaline Phosphatase* 128 U/L (40-150); Anion Gap 9 mEq/L (7-15); Aspartate Amino Transferase* 19 U/L (12-35); Calcium* 9.5 mg/dL (8.4-10.6); Carbon Dioxide* 28 mmol/L (20-32); Glucose* 92 mg/dL (60-115); Magnesium* 2.2 mg/dL (1.5-2.6); Total Protein* 7.7 g/dL (6.0-8.3)
[2024-10-08 13:54] LABS: C Reactive Protein* 1.1 mg/dL (0.5-1.0)
[2024-10-08 14:11] LABS: PCR FLU A Negative PCR FLU A (Negative); PCR FLU B Negative PCR FLU B (Negative); PCR RSV Negative PCR RSV (Negative); SARS PCR* Negative SARS-CoV-2 (Negative)
[2024-10-08 14:13] LABS: NT Pro B Type NatriureticPept* 129 pg/mL; Troponin I* < 0.01 ng/mL (0.01-0.04)
== END 2024-10-08 16:13 | disposition home or self-care (01) ==
PROVIDERS: Emergency Provider Family Medicine; PCP Family Medicine
DX: J69.0 Pneumonitis due to inhalation of food and vomit (principal)
CPT/HCPCS: 36415; 71045; 71250; 80053; 82803; 83605; 83735; 83880; 84484; 85025; 86140; 87631; 93005; 94761; 99284; 99285

== ENCOUNTER 2024-10-08 16:03 | Outpatient (CLI) | payer BC, OTHER, SELFPAY | END 2024-10-08 16:04 | disposition home or self-care (01) | LOC: AMB 10-10 13:06 | PROVIDERS: PCP Family Medicine; Visit Provider Emergency Medicine Emergency Medical Services | DX: J69.0 Pneumonitis due to inhalation of food and vomit (principal) | CPT/HCPCS: A0425; A0428 ==

== ENCOUNTER 2024-10-24 08:42 | Outpatient (CLI) | payer BC, OTHER, SELFPAY ==
--- NOTE | 2024-10-24 09:15 | CRLHL7_ITS ---
For Patients: As a result of the Cures Act, medical imaging exams and procedure reports are released immediately into your electronic medical record. You may view this report before your referring provider. If you have questions, please contact your health care provider. For Patients: As a result of the Cures Act, medical imaging exams and procedure reports are released immediately into your electronic medical record. You may view this report before your referring provider. If you have questions, please contact your health care provider. CLINICAL HISTORY:Assess swallow for aspiration. Hx of MS with aspiration pneumonia. TECHNIQUE:Fluoroscopy was provided for speech pathologist during video swallow study. Please see additional report for full details and recommendations. 12 seconds of fluoroscopy time was utilized. FINDINGS:Patient was given barium of varying consistencies to ingest. There was laryngeal penetration without aspiration during ingestion of thin barium liquids. There was no laryngeal penetration or aspiration during ingestion of pudding + cracker. CP Bar present. Some mild residue to the vallecula present with thin and pudding consistency barium. Dictated by Buck Blackmon MD @ 10/24/2024 10:09:26 AM (Electronically Signed)
== END 2024-10-24 08:43 | disposition home or self-care (01) ==
PROVIDERS: PCP Family Medicine; Visit Provider Nurse Practitioner Gerontology
DX: J69.0 Pneumonitis due to inhalation of food and vomit (principal); G35 Multiple sclerosis
CPT/HCPCS: 74230; 92611

== ENCOUNTER 2025-04-09 16:01 | Outpatient (REF) | payer BC, OTHER, SELFPAY ==
[2025-04-09 16:43] LABS: Hematocrit* 40.9 % (33.0-51.0); Hemoglobin* 13.3 gm/dL (12.0-16.0); Immature Granulocytes Pct Auto 0.2 %; Mean Corpuscular HGB Conc 33 gm/dL (32-36); Mean Corpuscular Hemoglobin 28 pg (26-34); Mean Corpuscular Volume 87 fL (80-100); RDW Coefficient of Variation % 14.1 % (11.5-15.5); Red Blood Count* 4.71 m/uL (4.00-5.20); White Blood Count* 11.15 K/uL (4.50-11.00)
[2025-04-09 16:48] LABS: Immature Granulocytes Abs Auto 0.00 K/uL (0.00-0.30); Lymphocytes Absolute Auto 3.90 K/uL (0.90-2.90); Slide Review Reflex No
[2025-04-09 16:53] LABS: Chloride* 98 mmol/L (96-114); Sodium* 135 mmol/L (135-149)
[2025-04-09 16:54] LABS: Potassium* 4.2 mmol/L (3.6-5.1)
[2025-04-09 16:56] LABS: Blood Urea Nitrogen* 16 mg/dL (7-30); Creatinine* 0.4 mg/dL (0.5-1.5); Estimated Glomerular Filt Rate 97 ml/min
[2025-04-09 16:57] LABS: Anion Gap 7 mEq/L (7-15); Calcium* 9.2 mg/dL (8.4-10.6); Carbon Dioxide* 30 mmol/L (20-32); Glucose* 120 mg/dL (60-115)
--- OUTSIDE RECORDS SUMMARY | 2025-04-10 00:16 | XMS_ITS | Clinical Summary ---
Author Organization [facility] Address [address] [place] [address] Care Team Providers Care Stone And Concrete Washer Name Role Phone Unavailable Primary Care Provider Unavailabl e Source Comments Patient records contain information from all sites at [facility]. For routine questions regarding patient records, call [phone] during business hours, M-F 8:00 AM - 5:00 PM Central Time. 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 Gender Identity Not on file Sexual Orientation Not on file Plan of Treatment Health Maintenance Due Date Last Done Comments Depression Monitoring (PHQ-9) 1940 Office Visit for Blood Pressure Check / Re-check 1940 Zoster Vaccines (3 of 3) 06/07/2019 019, 04/11/2019, 05/22/2014 DTaP,Tdap,and Td Vaccines (2 - Td or Tdap) 02/14/2022 02/15/2012, 11/23/1989 Creatinine Level (Kidney Function Test) 11/18/2023 11/17/2022, 11/16/2021, 04/10/2019, Additional history exists Potassium Level 11/18/2023 11/17/2022, 10/30, 04/10/2019, Additional history exists Sodium Level 11/18/2023 11/17/2022, 10/30, 04/10/2019, Additional history exists Depression Monitoring (PHQ-9 for quality tracking) 08/01/2024 Fall Risk Screen (Annual) 08/01/2024 COVID-19 Vaccine ( season) 2025 09/06/2023, 01/13/2023, 02/17/2022, Additional history exists Influenza Vaccine (#1) 2025 , 04/21/2022, 05/01/2021, Additional history exists Pneumococcal vaccine (50+ years) Completed 01/27/2015, 09/15/2004 RSV vaccine - (32-36 weeks) or 60+ years Completed 09/06/2023 IPV Vaccines Aged Out No longer eligi ble based on patient's age to complete this topic Insurance * Guarantor: Dianna Mock Account Type Relation to Patient Date of Phone Billing Address Personal/Family Self 1940 [address] [place] [address] [email or web address] [facility]
--- OUTSIDE RECORDS SUMMARY | 2025-04-10 00:16 | XMS_ITS | Clinical Summary ---
Author Organization [facility] Address [address] [place] [address] Care Team Providers Care Civil Clerk Name Role Phone Evin Rowley MD Unavailable [phone] DayannaYadi ortiz MD Primary Care Provider Allergies [...] on file Legal Sex Female 6:10 AM REMEDIATION CONSULTANT Gender Identity Not on file Sexual Orientation [...] 02/09/2024 9:48 AM CDT Plan of Treatment Health Maintenance Due Date Last Done Comments RSV vaccine for adults or (1 - 1-dose 75+ series) 2014 Zoster (shingles) series for age 50+ (3 of 3) 06/07/2019 04/12/2019, 04/11/2019, 05/22/2014 Tetanus booster 02/14/2022 02/15/2012, 11/23/1989 Depression screening for age 12+ 11/18/2023 11/17/2022, 11/17/2022, 11/16/2021, Additional history exists Medicare Wellness for age 65+ 11/18/2023 11/17/2022, 11/16/2021, 04/10/2019, Additional history exists COVID-19 vaccine series ( season) 2025 09/06/2023, 01/13/2023, 02/17/2022, Additional history exists Influenza Vaccine (#1) 2025 2, 05/01/2021, 04/30/2020, Additional history exists DEXA/DXA scan for age 65+ Completed 2012, 10/22/2011 (Declined) Pneumococcal series for age 50+ Completed 01/27/2015, 09/15/2004 Hepatitis B series for 19+ Aged Out N o longer eligible based on patient's age to complete this topic Medical Devices Implanted Type Area Ground Support Equipment Assembler Device Identifier Shelf Expiration Date Model / Serial / Lot Dual Chamber Pacemaker Implanted:03/02 (Quantity not on file) Standard Pacemaker Medtronic ADAPTA L ADDRL1 / [id number] / Procedures Procedure Name Priority Date/Time Associated [...] of this study. Procedure Note Aurelia Morales E - 01/25/2013 Please see scanned document for [...] 12 months since positive culture): resides in acute/watermelon harvesting supervisor care, receiving hemodialysis, has chronic open wounds/skin damage, has long-term percutaneous indwelling medical devices Exclusions for nares collection (if <12 months since positive culture) include all of the previous exclusions plus patients on antibiotics 7 days prior to collection 05/02/2023 05/02/2023 Insurance * Guarantor: Emili Dianna E Account Type Relation to Patient Date of Phone Billing Address Personal/Family Self 1940 [address] [address] MEDICARE PART A HB ONLY [employer] [facility] Member Subscriber Plan / Payer (Ef fective 2023-Present) Name:Dianna Mock Marco Relation to Subscriber:Self Name:Dianna Mock Payer ID:[id number] (NAIC) Group ID:[id number] Type:Not on file Address: MAILSTOP: [id number] [address] [place] [address] Advance Directives Documents on File Type Date Recorded Patient Ammunition And Explosives Handler Expl anation POLST 04/25/2019 9:31 AM [facility] 03/13/2019 POLST 09/21/2017 1:37 PM ELVIRA NABIL, 09/20/17 POLST 09/13/2011 POLST, [facility], 09/13/11 Healthcare Directive 08/17/2010 ADVANCE D DIRECTIVE FORM[facility], 08/17/10 * Full Code (Latest Code Status [...] 1:15 PM 03/26/2010 6:33 PM Care Teams Civil Clerk Relationship Specialty Start Date End Date Yadi Alan MD PCP - General Family Practice 11/16/21 Evin Rowley MD Surgery - Urology 01/22/13
== END 2025-04-09 16:02 | disposition home or self-care (01) ==
LOC: NPINS 16:01
PROVIDERS: PCP Family Medicine; Visit Provider Nurse Practitioner Gerontology
DX: D64.9 Anemia, unspecified (principal); I10 Essential (primary) hypertension
CPT/HCPCS: 80048; 85025